=== PATIENT | female | born 1960 | race African-American/Black ===

== ENCOUNTER 2020-07-26 08:51 | Outpatient (CLI) | payer BC ==
[2020-07-26 10:30] LABS: Prothrombin Time 10.8 sec (9.5-12.1)
[2020-07-26 10:42] LABS: Hemoglobin 14.3 g/dL (12.0-15.5); Mean Corpuscular Hemoglobin 28.7 pg (27.0-33.0); Mean Corpuscular Volume 89.6 fl (81.6-98.3); Mean Platelet Volume 10.5 fl (7.4-10.4); Platelet Count 339 10x3/uL (150-450); Red Blood Cell (RBC) Count 4.99 10x6/uL (3.90-5.03); White Blood Cell (WBC) Count 6.1 10x3/uL (3.5-10.5)
[2020-07-26 10:44] LABS: Anion Gap 11 mmol/L (10-20); BUN (Urea Nitrogen) 18 mg/dL (9.8-20.1); Calc. Creatinine Clearance 0 mL/min (70-130); Calcium 9.1 mg/dL (7.8-10.44); Carbon Dioxide 26 mmol/L (22-29); Chloride 106 mmol/L (98-107); Glucose 87 mg/dL (70-105); Potassium 4.3 mmol/L (3.5-5.1); Sodium 139 mmol/L (136-145)
[2020-07-26 22:06] LABS: SARS-CoV-2 NAA Rapid Test Not Detected (NotDetected)
== END 2020-07-26 08:52 | disposition home or self-care (01) ==
LOC: LABBT 08:51
PROVIDERS: ATTEND Surgery
DX: Z01.818 Encounter for other preprocedural examination (principal); M48.02 Spinal stenosis, cervical region; M54.12 Radiculopathy, cervical region; Z20.822 Contact with and (suspected) exposure to COVID-19
CPT/HCPCS: 80048; 85027; 85610; 85730; 86850; 86900; 86901; 93005; 93010; U0002; U0005

== ENCOUNTER 2020-07-31 05:29 | Day surgery (SDC) | payer BC ==
[2020-07-30 11:20] VITALS: BMI 24.0
[2020-07-31] MEDS ORDERED: Thrombin 5000 UNITS/5 ML VIAL ONE (06:33)
[2020-07-31] MEDS ORDERED: Fentanyl 250 MCG/5 ML VIAL ONE (06:53)
[2020-07-31] MEDS ORDERED: Midazolam HCl 2 mg/2 ml Vial ONE (07:15)
[2020-07-31] MEDS ORDERED: Dexamethasone 20 MG/5 ML VIAL ONE (07:38)
[2020-07-31] MEDS ORDERED: Glycopyrrolate 0.2 MG/ML 5 ML SYRINGE ONE (07:38)
[2020-07-31] MEDS ORDERED: Ondansetron PF 4 MG/2 ML Vial ONE (07:38)
[2020-07-31] MEDS ORDERED: ePHEDrine Sulfate 50 MG/10 ML VIAL ONE (07:38)
[2020-07-31] MEDS ORDERED: Lidocaine 1% PF 5 ML VIAL ONE (07:38)
[2020-07-31] MEDS ORDERED: Rocuronium Bromide 10 MG/ML (10ML VIAL) ONE (07:38)
[2020-07-31] MEDS ORDERED: PROPOFOL 200 MG/20 ML VIAL ONE (07:38)
[2020-07-31] MEDS ORDERED: Morphine Sulfate 2 MG/ML SYRINGE SLOW IVP PRN (09:22)
[2020-07-31] MEDS ORDERED: Promethazine HCl 25 MG/ML VIAL SLOW IVP PRN (09:22)
[2020-07-31] MEDS ORDERED: Ondansetron HCl/PF 4 MG/2 ML Vial IVP PRN (09:22)
[2020-07-31] MEDS ORDERED: Promethazine HCl 25 MG/ML VIAL IM PRN (09:22)
[2020-07-31] MEDS ORDERED: PACU-Morphine 4MG/ML VIAL SLOW IVP PRN (09:22)
[2020-07-31] MEDS ORDERED: HYDROmorphone 2 MG/ML VIAL SLOW IVP PRN (09:22)
[2020-07-31] MEDS ORDERED: Morphine 2 MG/ML VIAL SLOW IVP PRN (10:00)
[2020-07-31] MEDS ORDERED: Acetaminophen 325 MG TAB PO PRN (10:00)
[2020-07-31] MEDS ORDERED: Acetaminophen/Codeine 30-300mg Tablet PO PRN (10:00)
[2020-07-31] MEDS ORDERED: traMADol HCl 50 MG TAB PO PRN (10:00)
[2020-07-31] MEDS ORDERED: tiZANidine HCl 4 MG TAB PO PRN (10:00)
[2020-07-31] MEDS ORDERED: ESTRADIOL 0.075 MG TOP SCH (10:15)
[2020-07-31] MEDS ORDERED: HYDROmorphone 0.5 MG/0.5 ML SYRINGE ONE ×2 (10:24→10:59)
[2020-07-31] MEDS ORDERED: Fentanyl 100 MCG/2 ML VIAL ONE ×3 (10:27→11:01)
[2020-07-31] MEDS: Sodium Chloride 0.9% 1,000 ML IV SCH ×2 (15:15→23:40)
[2020-07-31] MEDS: CEFAZOLIN 2 GM in Premix Bag 1 BAG IVPB SCH ×2 (15:15→23:47)
[2020-07-31] MEDS: HYDROcodone/Acetaminophen 7.5/325 mg Tablet PO PRN (17:25)
[2020-08-01 03:26] VITALS: TEMP 97.7
[2020-08-01] MEDS: HYDROcodone/Acetaminophen 7.5/325 mg Tablet PO PRN (04:26)
[2020-08-01] MEDS: CEFAZOLIN 2 GM in Premix Bag 1 BAG IVPB SCH (06:47)
[2020-08-01 07:55] VITALS: BP 159/80
[2020-08-01] MEDS ORDERED: Escitalopram Oxalate 10 mg Tablet PO SCH (09:00)
== END 2020-08-01 12:08 | disposition home or self-care (01) ==
LOC: SDC 05:29 → SURG B 09:58 → SDC 08-01 12:08
PROVIDERS: ATTEND Surgery
PROC: 0RG20A0 Fusion of 2 or more Cervical Vertebral Joints with Interbody Fusion Device, Anterior Approach, Anterior Column, Open Approach (ICD-10-PCS; principal; 2020-07-31)
PROC: 0RT30ZZ Resection of Cervical Vertebral Disc, Open Approach (ICD-10-PCS; principal; 2020-07-31)
DX: M48.02 Spinal stenosis, cervical region (principal); M54.12 Radiculopathy, cervical region; F17.200 Nicotine dependence, unspecified, uncomplicated; Z79.899 Other long term (current) drug therapy
CPT/HCPCS: 76000; C1713; C1768; C1776; J0690; J1100; J1170; J2250; J2405; J2704; J3010

== ENCOUNTER 2022-03-07 14:13 | Outpatient (CLI) | payer BC | END 2022-03-07 14:14 | disposition home or self-care (01) | LOC: TBSIIMAG 14:13 | PROVIDERS: ATTEND Surgery | DX: M47.22 Other spondylosis with radiculopathy, cervical region (principal); M48.02 Spinal stenosis, cervical region; M50.11 Cervical disc disorder with radiculopathy, high cervical region; Z98.1 Arthrodesis status | CPT/HCPCS: 72040 ==